=== PATIENT | male | born 1970 | race Two or more races ===

== ENCOUNTER 2021-09-12 21:30 | Emergency (ER) | payer BC ==
[2021-09-12 22:22] LABS: #Basophils 0.1 10x3/uL (0.0-0.2); #Eosinphils 0.7 10x3/uL (0.0-0.5); #Monocytes 0.7 10x3/uL (0.0-1.1); #Neutrophils 2.9 10x3/uL (1.5-8.4); %Basophils 0.8 % (0.0-2.0); %Eosinophils 11.2 % (0.0-6.0); %Lymphocytes 31.3 % (18.0-47.0); %Monocytes 11.1 % (0.0-10.0); %Neutrophils 45.4 % (40.0-75.0); Hemoglobin 13.4 g/dL (13.5-17.5); Mean Corpuscular HGB CONC 33.3 g/dL (32.0-36.0); Mean Corpuscular Volume 89.9 fl (81.2-95.1); Mean Platelet Volume 11.7 fl (7.4-10.4); Platelet Count 173 10x3/uL (150-450); RBC Distribution Width 12.5 % (11.5-14.5); Red Blood Cell (RBC) Count 4.47 10x6/uL (4.32-5.72); White Blood Cell (WBC) Count 6.3 10x3/uL (3.5-10.5)
[2021-09-12 22:23] LABS: ALT (SGPT) 46 U/L (8-55); AST (SGOT) 29 U/L (5-34); Albumin 4.8 g/dL (3.5-5.0); Alkaline Phosphatase 95 U/L (40-110); Anion Gap 14 mmol/L (10-20); BUN (Urea Nitrogen) 9 mg/dL (8.9-20.6); Bilirubin, Total 0.2 mg/dL (0.2-1.2); CK (CPK) 236 U/L (30-200); Calc. Creatinine Clearance 0 mL/min (70-130); Calcium 7.6 mg/dL (7.8-10.44); Carbon Dioxide 26 mmol/L (22-29); Chloride 101 mmol/L (98-107); Estimated GFR 108; Glucose 71 mg/dL (70-105); Lipase 38 U/L (8-78); Protein, Total 5.8 g/dL (6.0-8.3); Sodium 137 mmol/L (136-145)
[2021-09-12] MEDS ORDERED: Aspirin Chewable 81 MG TAB ONE (22:47)
== END 2021-09-12 22:47 | disposition home or self-care (01) ==
LOC: CSHERS 21:30
DX: R07.89 Other chest pain (principal); E78.5 Hyperlipidemia, unspecified
CPT/HCPCS: 71045; 80053; 82550; 83690; 83880; 84484; 85025; 85379; 93005

== ENCOUNTER 2025-02-03 12:47 | Outpatient (CLI) | payer BC | END 2025-02-03 12:48 | disposition home or self-care (01) | LOC: CSHMRI 12:47 | PROVIDERS: ATTEND Podiatrist | DX: M76.61 Achilles tendinitis, right leg (principal); M72.2 Plantar fascial fibromatosis; M79.671 Pain in right foot; M62.89 Other specified disorders of muscle; M65.971 Unspecified synovitis and tenosynovitis, right ankle and foot ==